=== PATIENT | male | born 1960 | race Caucasian/White ===

== ENCOUNTER 2016-09-30 14:40 | Emergency (ER) | payer OTHER ==
[2016-09-30] VITALS (7 sets, daily range): BP systolic 133–165; BP diastolic 85–102; PULSE 69–88; RESP 16–21; O2SAT 95–97
[~2016-09-30] VITALS: Ht 177.8 cm; Wt 100.0 kg
[~2016-09-30 14:40] MED LIST: ADAL40PE SQ; AMIT10TA6 PO; AMLO10TA3 PO; ASPI-973 PO; ATOR40TA69 PO; CHLO50TA PO; HYDR-3740 PO; LISI40TA PO; LORA10CA PO; POTA10CA42 PO; RANI150C4 PO; WARF5TAB PO
--- NOTE | 2016-09-30 15:24 | ED.REPORT ---
HPI-Stroke / CVA Sep 30, 2016 ED Provider: Olegario Reed MD Pt is a 55 y/o male w/ a hx of alcohol abuse, PE, DVT, CVA, HTN, hyperlipidemia , presenting to the ED with multiple medical complaints for many days. The [facility] and he was hypertensive at 170 systolic and therefore his PCP recommended he be sent here with concern for altered mental status and confusion. He states that his BP is normally elevated and today is similar. He has been experiencing left-sided chest pain for 2 days now, 5-610 at current time. He does have a history of PE in the left lung in October 2015 although his symptoms today are not similar. He was taken off anticoagulation. He denies SOB, cough, recent trauma, SI, HI. The patient also reports that his girlfriend noticed he had slurred speech directly after waking up during the night at 02:00 today. He also has apparently been shaking and stumbling as as been experiencing vague confusion for the past 3 days. The patient has apparently been drinking hard liquor daily now for the past 2 months when he used to consume only an occasional beer. His last drink was this morning which was 2 shots of tequila. The patient himself denies any problems with alcohol but his girlfriend thinks he does have a problem as he is consuming an entire bottle of vodka each day now. He is trying to cut back on alcohol but doesn't want to go to a detox center. He has no history of TX or CAD. He states that he is stressed and becomes tearful during the interview. Nursing Notes Stated Complaint: POSSIBLE STROKE Chief Complaint: Neuro Symptoms/ Deficits Nursing Notes Reviewed: Yes Allergies: Coded Allergies: No Known Allergies (Verified Allergy, Unknown, 09/30/16) Scheduled Amitriptyline (Amitriptyline) 10 Mg Tablet 20 MG PO HS (Reported) Amlodipine (Amlodipine) 10 Mg Tablet 10 MG PO DAILY (Reported) Aspirin (Aspirin) 81 Mg Tablet 81 MG PO DAILY (Reported) Atorvastatin Calcium (Atorvastatin Calcium) 40 Mg Tablet 40 MG PO DAILY ( Reported) Chlorthalidone (Chlorthalidone) 50 Mg Tablet 100 MG PO AM (Reported) Lisinopril (Lisinopril) 40 Mg Tablet 40 MG PO DAILY (Reported) Loratadine (Claritin) 10 Mg Capsule 10 MG PO DAILY (Reported) Potassium Chloride (Potassium Chloride) 10 Meq Capsule.er 10 MEQ PO DAILY ( Reported) TAKE WITH FOOD Ranitidine (Ranitidine) 150 Mg Capsule 75 MG PO BID (Reported) Warfarin Sodium (Coumadin) 5 Mg Tablet 5 MG PO DAILY@17 Scheduled PRN Hydrocodone-Acetaminophen 10-325 mg (Hydrocodone-Acetaminophen 10-325 mg) 1 Each Tablet 1 TABLET PO Q4H PRN PRN For Pain Miscellaneous Medications Adalimumab (Humira) 40 Mg/0.8 Ml Pen.ij.kit 40 MG SQ (Reported) General Time Seen by Provider: 15:35 Chief Complaint Other (vague) Hx Obtained From: Patient Arrived By: Walk-in Time last known well Many days ago, unspecified Sudden in Onset?: No Symptom Duration: 2 days Progression Since Onset: Unchanged Location: : Chest Quality: Painful Severity: Current: Mild Severity: Maximum: Moderate Similar Sx Previous: Yes Past Medical History Past Medical History Notes: [facility] [place] Past Medical History Admitted October 2015 for pulmonary embolism of the left lung History of DVT, right internal jugular vein (lower extremity ultrasounds were negative) History of TIAs History of head and neck cancer, in remission History of psoriasis, on Humira at least in October 2015 Arthritis Alcohol abuse Reports: Hyperlipidemia, Hypertension Past Surgical History Thyroidectomy 2011 Shrapnel removal from leg Family History Mother and father before age 50 Reports: Coronary artery disease, Diabetes mellitus, Transient ischemic attack Smoking History Never Smoker Social History Alcohol Use: >5 per day Drug Use: Denies drug use Other Social History: Good social support Ambulatory Status Independent Review of Systems Constitutional: Denies: Chills, Fever Respiratory: Denies: Non-productive cough, Shortness of breath Cardiovascular: Reports: Chest pain GI: Denies: Abdominal pain, Nausea, Vomiting Neurologic: Reports: Confusion, Problem walking, Shaking, Slurred speech, Denies: Focal weakness, Numbness Psychiatric: Reports: Anxiety, Stress, Denies: Homicidal ideation, Suicidal ideation Complete sys rev & neg: except as marked. Physical Exam Constitutional: Well-developed, well-nourished. Not diaphoretic. Tearful. Head: Normocephalic and atraumatic. Mouth/Throat: Oropharynx is clear and moist. No oropharyngeal exudate. Eyes: Pupils are equal, round, and reactive to light. Neck: Supple, no tracheal deviation. Cardiovascular: Normal rate, regular rhythm. Equal and intact distal pulses throughout. Pulmonary/Chest: Effort normal and breath sounds normal. No respiratory distress , reproducible left anterior chest tenderness. Abdominal: Soft. No distension. There is no tenderness, rebound, or guarding. Musculoskeletal: Range of motion grossly intact, moving all extremities. No edema or tenderness appreciated. Neurological: AOx3. Grossly nonfocal exam. Strength and sensation intact and equal to bilateral upper and lower extremities. Normal finger to nose testing. No pronator drift. Heel to samaniego normal. Mild tremor. Normal gait. Skin: Warm and dry, no rashes or pallor appreciated. Psychiatric: Appropriate mood and affect. Tearful. No SI or HI. Initial Vital Signs Vital Signs (First) Date Time Temp Pulse Resp B/P Pulse Ox O2 Delivery O2 Flow Rate FiO2 09/30/16 14:43 36.8 80 21 156/102 96 Room Air Initial VS: Reviewed, Vital signs normal Interpretation & Diagnostics Lab Results Interpretation Result Diagram: 09/30/16 1525 09/30/16 1525 Test 09/30/16 15:25 09/30/16 15:57 09/30/16 16:05 White Blood Count 6.2th/mm3 (3.8-10.1) Red Blood Count 4.89mil/mm3 (4.40-5.80) Hemoglobin 15.6g/dL (13.8-17.2) Hematocrit 45.0% (41.0-50.0) Mean Corpuscular Volume 92.0fL (81-100) Mean Corpuscular Hemoglobin 31.9pg (27.0-35.0) Mean Corpuscular Hemoglobin Concent 34.7% (32.0-37.0) Red Cell Distribution Width 12.3% (12.3-15.4) Platelet Count 288bil/L (150-400) Neutrophils (%) (Auto) 44.8% (40-74) Lymphocytes (%) (Auto) 44.2% (14-46) Monocytes (%) (Auto) 7.6% (4-12) Eosinophils (%) (Auto) 2.6% (0-5) Basophils (%) (Auto) 0.8% (0-3) Sodium Level 143mEq/L (134-144) Potassium Level 3.3mEq/L (3.5-5.2) Chloride Level 103mEq/L (97-108) Carbon Dioxide Level 19mmol/L (18-29) Blood Urea Nitrogen 9mg/dL (6-24) Creatinine 0.77mg/dL (0.76-1.27) Estimat Glomerular Filtration Rate 112mL/min (>59) Glucose Level 118mg/dL (60-99) Lactic Acid Level 3.0mmol/L (0.4-2.0) Calcium Level 9.5mg/dL (8.5-10.1) Magnesium Level 2.1mg/dL (1.6-2.6) Total Bilirubin 0.4mg/dL (0.0-1.2) Aspartate Amino Transf (AST/SGOT) 90U/L (0-50) Alanine Aminotransferase (ALT/SGPT) 42U/L (0-44) Alkaline Phosphatase 43U/L (25-150) Total Creatine Kinase 337U/L (21-232) Troponin T < 0.010ug/L (0.0-0.011) Total Protein 8.5g/dL (6.4-8.4) Albumin 4.4g/dL (3.4-5.0) Thyroid Stimulating Hormone (TSH) 0.792uIU/mL (0.450-4.500) Free Thyroxine 1.18ng/dL (0.82-1.77) Hold [place] Top Tube Received (Received) Salicylates Level < 3.0ug/mL (30-250) Acetaminophen Level < 15.0ug/mL Rx (10-25) Alcohols 303mg/dL (0-10) Hold Red Top Tube Received (Received) Hold [place] Top Tube Received (Received) Urine Color Yellow (YELLOW) Urine Appearance Clear (CLEAR,HAZY) Urine pH 6.0 (5.0-8.0) Urine Specific [place] 1.010 (1.003-1.035) Urine Protein Tracemg/dL (NEG,TRACE) Urine Glucose (UA) Negativemg/dL (NEGATIVE) Urine Ketones Negativemg/dL (NEGATIVE) Urine Occult Blood Moderate (NEGATIVE) Urine Nitrite Negative (NEGATIVE) Urine Bilirubin Negative (NEGATIVE) Urine Urobilinogen Normalmg/dL (NORMAL) Urine Leukocyte Esterase Negative (NEGATIVE) Urine RBC 3-10/hpf (0-2) Urine WBC 0-5/hpf (0-5) Urine Epithelial Cells Few/hpf (NONE-MOD) Urine Crystals None seen (NONE SEEN) Urine Bacteria Few/hpf (NONE-FEW) Urine Hyaline Casts None/lpf (NONE) Urine Granular Casts None seen (NONE SEEN) Urine Waxy Casts None seen (NONE SEEN) Urine Red Blood Cell Casts None seen (NONE SEEN) Urine White Blood Cell Casts None seen (NONE SEEN) Urine Mucus None seen (None Seen) Urine Trichomonas None seen (NONE SEEN) Urine Yeast None (NONE SEEN) Urinalysis Comment None Urine Culture Reflexed Not indicated ECG Interpretation ECG Interpretation: Sinus rhythm rate 71 Old inferior infarct Time: 15:18 Interpreted by: ED physician Normal ECG Interpretation: No acute ischemic changes X-Ray Chest Interpretation Chest Xray Interpretation: IMPRESSION: Stable chest. No acute cardiopulmonary process is evident. Dictated by: Juwan Galaviz M.D. on 09/30/2016 at 14:36 Approved by: Juwan Galaviz M.D. on 09/30/2016 at 14:36 View: Portable, 1 view Interpretation / Wet Read by: Interpret - Radiologist Chest Xray Interpretation: Repeat ordered accidentally IMPRESSION: Stable chest. No acute cardiopulmonary process is evident. Dictated by: Juwan Galaviz M.D. on 09/30/2016 at 15:23 Approved by: Juwan Galaviz M.D. on 09/30/2016 at 15:23 View: Portable, 1 view Interpretation / Wet Read by: Interpret - Radiologist (Repeat ordered accidentallyIMPRESSION: Stable chest. No acute cardiopulmonary process is evident. Dictated by: Juwan Galaviz M.D. on 09/30/2016 at 15:23 Approved by: Juwan Galaviz M.D. on 09/30/2016 at 15:23 ) CT Head Interpretation IMPRESSION: 1. No acute intracranial abnormalities. 2. Cerebral volume loss and chronic microvascular ischemic changes. 3. Bilateral sinusitis. Dictated by: Reji Ivey M.D. on 09/30/2016 at 17:20 Approved by: Reji Ivey M.D. on 09/30/2016 at 17:30 Study: Head CT no contrast Interpretation / Wet Read by: Interpret - Radiologist CT Chest Interpretation IMPRESSION: 1. No evidence for central pulmonary emboli. 2. Small hiatal hernia. Dictated by: Reji Ivey M.D. on 09/30/2016 at 17:30 Approved by: Reji Ivey M.D. on 09/30/2016 at 17:38 Study type: CT pulm angiogram Interpretation / Wet Read by: Interpret - Radiologist Re-Eval/Medical Decision Med Decision/Clinical Course In summary, 55-year-old male presenting to the emergency department for an evaluation of altered mental status over the past several days. Originally stating that his primary care physician sent him to the emergency department because this hypertension, however significant others here states that it is primarily because of altered mental status and confusion. After further discussion with the patient after his head CT and chest CT were negative, it appears that he's been drinking more heavily recently. Blood alcohol levels here greater than 300. EKG with no acute ischemic changes. Troponin neg. Chest wall tenderness clearly reproducible to palpation. He has a grossly non-focal neurologic exam; I do not believe he is having a stroke/CVA. Upon reassessment, his confusion and mental status is improving, which seems to correlate with improving alcohol levels. He has also become somewhat more anxious as he has sobered. Currently not in alcohol withdrawal. I discussed possible outpatient options with the patient and the social research assistant. Given the patient's improvement here in the emergency department, I believe it is okay for the patient to be discharged home with close outpatient followup and I've recommended outpatient detox to the patient. Careful return precautions discussed. Patient agreeable to the plan as stated, no further questions. Source of Hx: Old records Re-Evaluation/Progress #1: Time of Eval: 20:05 Patient Status: Condition improved, Mild relief Re-Evaluation/Progress Note: Pt rechecked. Discussed lab findings. He would like to go home. Informed pt of need for admission due to possible alcohol withdrawal and also possibility of need for CVA workup once sober enough to perform neuro exam. He states he has not gone through alcohol withdrawal previously. He consents to speak with the social research assistant. Re-Evaluation/Progress #2: Time of Eval: 21:59 Re-Evaluation/Progress Note: Pt rechecked. Informed pt of plan for treatment. Pt understands and agrees with plan for treatment. F/U instructions and RTER warnings given. All questions addressed. Is leaving with girlfriend. Consultation : Consulted With: hydroponics worker Call Returned at: 21:19 Barkeeper: Will see patient, Agrees with eval, Agrees with plan Note: Recommends dc and [facility]. Counseled Regarding: Diagnosis, Lab results, Need for follow-up, When/why to return to ED Patient Discharge & Departure Impression: Primary Impression: Chest pain Chest pain type: unspecified Qualified Code: R07.9 - Chest pain, unspecified Additional Impressions: Acute alcohol intoxication Complication of substance-induced condition: uncomplicated Qualified Code: F10.120 - Alcohol abuse with intoxication, uncomplicated Alcohol abuse Disposition: Home Discharge Condition All VS Reviewed: Yes Condition: Stable Patient Instructions: Alcohol Withdrawal (ED), Chest Pain (ED) Additional Instructions: Labs, EKG, head CT, and chest x-ray today were reassuring. There was no sign of heart attack or blood clot in the lungs. It is unclear whether your symptoms are from alcohol use, stroke, or other neurological cause. Return to the emergency department if you experience worsening chest pain, trouble breathing, profuse sweating, or for other symptoms concerning to you. Alcohol withdrawal can be life threatening. You cannot quit alcohol "cold turkey." You will need to gradually taper off of the amount of alcohol you drink or you could have severe withdrawal symptoms. Please follow up on the resources provided to you by our social work team. Return to the ER if you are having any thoughts of wanting to hurt yourself or others, if you are hearing or seeing things that aren't there, are having severe tremors or any other symptoms concerning to you. [facility] Brtitni Attestation Portions of this note were transcribed by Jerome Brooks. I, Dr. Reed, personally performed the history, physical exam and medical decision-making; I reviewed and confirmed the accuracy of the information in the transcribed note. Signed by Brittni Hernandez, 09/30/16 - 1238 copies to: [facility] Olegario Reed MD Sep 30, 2016 15:24 JEROME BROOKS Sep 30, 2016 15:38
[2016-09-30 15:36] LABS: BASOPHILS % (AUTO) 0.8 % (0-3); EOSINOPHILS % (AUTO) 2.6 % (0-5); MONOCYTES % (AUTO) 7.6 % (4-12); Mean Corpuscular Hemoglobin 31.9 pg (27.0-35.0); NEUTROPHILS % (AUTO) 44.8 % (40-74); Platelet Count 288 bil/L (150-400)
--- NOTE | 2016-09-30 15:38 | DRSVH ---
PROCEDURE: X-RAY CHEST ONE VIEW, PORTABLE ([id number]) INDICATIONS: CHEST PAIN TECHNIQUE: One view of the chest was acquired. COMPARISON: [facility], CR, XR CHEST 1VW (PORTABLE), 01/12/2016, 18:49. FINDINGS: Surgical changes and devices: None. Lungs and pleura: No pleural effusions or pneumothorax. Lungs are clear. Mediastinum: Mediastinal contours appear normal. Heart size is normal. Bones and chest wall: No suspicious bony lesions. Overlying soft tissues appear unremarkable. IMPRESSION: Stable chest. No acute cardiopulmonary process is evident. Dictated by: Juwan Galaviz M.D. on 09/30/2016 at 14:36 Approved by: Juwan Galaviz M.D. on 09/30/2016 at 14:36
[2016-09-30] MEDS ORDERED: 0.9% Sodium Chloride 1,000 ML IV ONE (15:46)
[2016-09-30 16:02] LABS: TROPONIN T < 0.010 ug/L (0.0-0.011)
[2016-09-30 16:10] LABS: Magnesium 2.1 mg/dL (1.6-2.6)
[2016-09-30 16:19] LABS: APPEARANCE,URINE CLEAR (CLEAR,HAZY); COLOR,URINE YELLOW (YELLOW)
[2016-09-30 16:20] LABS: OCCULT BLOOD,URINE MODERATE (NEGATIVE); UROBILINOGEN,URINE NORMAL (NORMAL)
--- NOTE | 2016-09-30 16:25 | DRSVH ---
PROCEDURE: X-RAY CHEST ONE VIEW, PORTABLE ([id number]) INDICATIONS: chest pain TECHNIQUE: One view of the chest was acquired. COMPARISON: [facility], CR, XR CHEST 1VW (PORTABLE), 09/30/2016, 15:11. FINDINGS: Surgical changes and devices: Postoperative changes of the right neck are noted. Lungs and pleura: The aeration of the lungs is similar to the prior study. Mild right hilar prominen ce is present. There is no focal consolidation, effusion, or pneumothorax. Mediastinum: Mediastinal contours appear normal. Heart size is normal. Bones and chest wall: No suspicious bony lesions. Overlying soft tissues appear unremarkable. IMPRESSION: Stable chest. No acute cardiopulmonary process is evident. Dictated by: Juwan Galaviz M.D. on 09/30/2016 at 15:23 Approved by: Juwan Galaviz M.D. on 09/30/2016 at 15:23
[2016-09-30] MEDS ORDERED: Ketorolac 15 mg/mL Inj IVPUSH ONE (16:45)
--- NOTE | 2016-09-30 17:32 | DRSVH ---
PROCEDURE: CT BRAIN WITHOUT CONTRAST ([id number]) INDICATIONS: possible AMS TECHNIQUE: Noncontrast 4.5 mm thick angled axial sections acquired from the foramen magnum to the vertex, with c oronal reformats. COMPARISON: None. FINDINGS: Image quality: Excellent. CSF spaces: Basal cisterns are patent. No extra-axial fluid collections. Ventricles are normal in size and shape. Brain: No midline shift. No intracranial masses or hemorrhage. Griffin-white matter interface is norm al. Skull and face: Calvarium and visualized facial bones are intact, without suspicious lesions. Sinuses: There is mucosal thickening partial opacification of the frontal, sphenoid and ethmoidal sin uses bilaterally, as well as the right maxillary sinus. The mastoids are clear. IMPRESSION: 1. No acute intracranial abnormalities. 2. Cerebral volume loss and chronic microvascular ischemic changes. 3. Bilateral sinusitis. Dictated by: Reji Ivey M.D. on 09/30/2016 at 17:20 Approved by: Reji Ivey M.D. on 09/30/2016 at 17:30
--- NOTE | 2016-09-30 17:40 | DRSVH ---
PROCEDURE: CT ANGIO CHEST PULMONARY EMBOLISM ([id number]) INDICATIONS: CHEST PAIN TECHNIQUE: After the administration of intravenous contrast, 2 mm thick sections acquired from the pulmonary api rahul to the posterior costophrenic angles. 3-dimensional maximum intensity projection (MIP) coronal a nd sagittal reformats were then acquired through the thorax. For radiation dose reduction, the follo wing was used: automated exposure control, adjustment of mA and/or kV according to patient size. COMPARISON: [facility], CR, XR CHEST 1VW (PORTABLE), 09/30/2016, 15:55. [facility], US, US VENOUS LEG DPLX BILAT, 12/06/2015, 11:40. [facility], CT, CT ANGIO CHEST P E, 10/10/2015, 18:10. FINDINGS: Image quality: Excellent. Pulmonary arteries: Pulmonary arteries are normal in size, and demonstrate no intraluminal filling d efects to suggest central pulmonary embolism. Lungs and pleura: Lungs are clear. No pleural effusions or pneumothorax. Central and peripheral ai rways are patent. Mediastinum: Heart size is normal, without pericardial effusion. No mediastinal or hilar adenopathy . Thoracic aorta is normal in caliber and enhancement. Esophagus is normal in caliber. There is a s mall hiatal hernia. Bones and chest wall: No suspicious bony lesions. Ribs and thoracic spine appear intact throughout. Thyroid gland is normal. No axillary or supraclavicular adenopathy. Abdomen: Visualized upper abdominal solid organs appear normal in the early arterial phase of enhanc ement. IMPRESSION: 1. No evidence for central pulmonary emboli. 2. Small hiatal hernia. Dictated by: Reji Ivey M.D. on 09/30/2016 at 17:30 Approved by: Reji Ivey M.D. on 09/30/2016 at 17:38
[2016-09-30] MEDS ORDERED: Ondansetron 2 mg/mL 2 mL Inj IVPUSH ONE (22:10)
== END 2016-09-30 22:23 | disposition home or self-care (01) ==
LOC: SED 14:40
DX: R07.9 Chest pain, unspecified (principal); F10.220 Alcohol dependence with intoxication, uncomplicated; I10 Essential (primary) hypertension; E78.5 Hyperlipidemia, unspecified; Y90.8 Blood alcohol level of 240 mg/100 ml or more; Z86.711 Personal history of pulmonary embolism; Z86.718 Personal history of other venous thrombosis and embolism; Z86.73 Personal history of transient ischemic attack (TIA), and cerebral infarction without residual deficits; Z79.01 Long term (current) use of anticoagulants; Z79.82 Long term (current) use of aspirin
CPT/HCPCS: 36415; 70450; 71010; 71275; 80053; 81000; 82550; 83605; 83735; 84439; 84443; 84484; 85025; 93005; 96361; 96374; 96375; 99285; G0480; J1885; J2405; J7030; Q9967